=== PATIENT | female | born 1940 | race Caucasian/White ===

== ENCOUNTER 2017-10-20 00:58 | Emergency (ER) | payer OTHER, MEDICARE ==
[~2017-10-20] VITALS: Ht 154.9 cm; Wt 79.4 kg
[~2017-10-20 00:58] MED LIST: LEVSIN-SL0.125 MG SL; ZOFRAN ODT4 M1 SL
--- NOTE | 2017-10-20 01:26 | ED GENERAL ADULT ---
History of Present Illness General Chief Complaint: General Adult Stated Complaint: SWELLING OF LIPS AND MOUTH? Source: patient, family Exam Limitations: no limitations, unable to give history Vital Signs & Intake/Output Vital Signs & Intake/Output Vital Signs Date Time Temp Pulse Resp B/P B/P Pulse O2 O2 Flow FiO2 Mean Ox Delivery Rate 10/20 0320 98.8 67 18 157/71 98 Room Air 10/20 0136 96 Room Air 10/20 0101 96.8 78 20 181/81 97 Room Air Allergies Coded Allergies: Sulfa (Sulfonamide Antibiotics) (05/12/16) Uncoded Allergies: IV CONTRAST (Intermediate, ITCHY HIVE, REDNESS @ VEIN 05/12/16) Reconcile Medications Hyoscyamine Sulfate (Levsin-Sl) 0.125 MG TAB.SUBL 1-2 TAB SL Q4P PRN abd pain Ondansetron (Zofran Odt) 4 MG TAB.RAPDIS 1 TAB SL TID nausea Triage Note: PT TO ED C/O SWELLING TO TONGUE, UNDER RAN, SORE THROAT. STARTED AT 2030 AND HAS GOTTEN WORSE. TAKES NO HOME MEDICATIONS. STATES "THIS HAPPENED 1 1/2 WEEKS AGO BUT IT WENT AWAY BY ITSELF" TONIGHT, I STARTED SHAKING TOO SO I THOUGHT I BETTER COME IN" TONGUE DOES APPEAR TO BE SWOLLEN ON LEFT SIDE. O2 SAT 97% ON RA. PT VERY ANXIOUS Triage Nurses Notes Reviewed? yes Onset: Gradual Duration: hour(s): Timing: recent history Injury Environment: home Severity: mild Associated Symptoms: swelling of lips and tongue HPI: 76 yo woman in prior good health presents with swelling of tongue and lips off and on for the past 5 hours after eating a potato with pink sea salt. She has never had a reaction like this. She notes no dyspnea, chest pain, shortness of breath. She is otherwise well. Past History Travel History Traveled to [place] past 21 day No Medical History Any Pertinent Medical History? see below for history Neurological: NONE EENT: NONE Cardiovascular: NONE Respiratory: NONE Gastrointestinal: NONE Hepatic: NONE Renal: NONE Musculoskeletal: NONE Psychiatric: NONE Endocrine: NONE Blood Disorders: NONE Cancer(s): NONE THREAD CUTTER/Reproductive: NONE Surgical History Surgical History: none Psychosocial History What is your primary language [place] Tobacco Use: Never used ETOH Use: denies use Illicit Drug Use: denies illicit drug use Family History Hx Contributory? No Review of Systems Review of Systems Constitutional: Reports: no symptoms. EENTM: Reports: no symptoms. Respiratory: Reports: no symptoms. Cardiovascular: Reports: no symptoms. GI: Reports: no symptoms. Genitourinary: Reports: no symptoms. Musculoskeletal: Reports: no symptoms. Skin: Reports: no symptoms. Neurological/Psychological: Reports: no symptoms. Hematologic/Endocrine: Reports: no symptoms. Immunologic/Allergic: Reports: no symptoms. All Other Systems: Reviewed and Negative Physical Exam Physical Exam General Appearance: well developed/nourished, no apparent distress Head: atraumatic, normal appearance Eyes: Bilateral: normal appearance. Ears, Nose, Throat: minimal swelling of the sub ungal area of tongue and left buccal mucosa. no ulcerations. no sign of abscess. Neck: normal inspection, supple, full range of motion Respiratory: normal breath sounds, chest non-tender, no respiratory distress Cardiovascular: regular rate/rhythm Gastrointestinal: normal bowel sounds, soft, non-tender, no organomegaly Back: normal inspection Extremities: normal inspection Neurologic/Psych: no motor/sensory deficits, awake, alert, oriented x 3 Skin: intact, normal color, warm/dry Core Measures ACS in differential dx? No CVA/TIA Diagnosis: No Sepsis Present: No Sepsis Focused Exam Completed? No Progress Differential Diagnoses I considered the following diagnoses in my evaluation of the patient: allergic reaction Plan of Care: Orders Procedure Date/time Status THROAT CULTURE W/QUICK STREP 10/20 0313 Active TROPONIN LEVEL 10/20 146 Complete COMPREHENSIVE METABOLIC PANEL 10/20 146 Complete CBC WITHOUT DIFFERENTIAL 10/20 146 Complete EKG 10/20 146 Active Laboratory Tests 10/20/17 0210: Anion Gap 13, Estimated GFR > 60, BUN/Creatinine Ratio 28.6 H, Glucose 111 H, Calcium 9.4, Total Bilirubin 0.6, AST 33, ALT 45, Alkaline Phosphatase 99, Troponin I < 0.01, Total Protein 6.9, Albumin 4.2, Globulin 2.7, Albumin/ Globulin Ratio 1.6, CBC w Diff NO MAN DIFF REQ, RBC 4.32, MCV 92.6, MCH 31.1 H, MCHC 33.6, RDW 13.0, MPV 8.4, Gran % 70.2, Lymphocytes % 23.2, Monocytes % 4.2, Eosinophils % 1.4, Basophils % 1.0, Absolute Granulocytes 7.9 H, Absolute Lymphocytes 2.6, Absolute Monocytes 0.5, Absolute Eosinophils 0.2, Absolute Basophils 0.1 Initial ED EKG: nsr, no acute changes, borderline q waves in v3 and III. Departure Departure Disposition: HOME OR SELF CARE Condition: Stable Clinical Impression Primary Impression: Allergic reaction Referrals: Patient Has No Primary Care Dr (PCP/Family) Departure Forms: Customer Survey General Discharge Information Comments 10/20/17, 3:49am... pt feels well at discharge... labs benign... she declines xray... subtle ekg changes likely benign pt encouraged to follow up with pmd tomorrow. Critical Care Note Critical Care Note Critical Care Time: non-applicable
[2017-10-20 02:18] LABS: ABSOLUTE BASOPHIL COUNT 0.1 /CUMM (0.0-0.2); ABSOLUTE EOSINOPHIL COUNT 0.2 /CUMM (0.0-0.7); ABSOLUTE GRANULOCYTE CT 7.9 /CUMM (1.4-6.5); ABSOLUTE LYMPH COUNT 2.6 /CUMM (1.2-3.4); ABSOLUTE MONOCYTE COUNT 0.5 /CUMM (0.10-0.60); EOSINOPHIL % 1.4 % (0-5); GRANULOCYTE % 70.2 % (42.2-75.2); MEAN CORPUSCULAR HGB 31.1 PG (27.0-31.0); MEAN CORPUSCULAR HGB CONC 33.6 G/DL (33.0-37.0); MEAN CORPUSCULAR VOLUME 92.6 FL (81.0-99.0); MEAN PLATELET VOLUME 8.4 FL (7.4-10.4); PLATELET COUNT 208 /CUMM (130-400); RED BLOOD CELL CT 4.32 /CUMM (4.20-5.40); WHITE BLOOD CELL COUNT 11.2 /CUMM (4.8-10.8)
[2017-10-20 03:20] VITALS: BP 157/71
== END 2017-10-20 03:55 ==
LOC: ERH 00:58
PROVIDERS: Pediatrics
DX: T78.40XA Allergy, unspecified, initial encounter (principal)
CPT/HCPCS: 93005; 93010